=== PATIENT | female | born 1990 | race Caucasian/White ===

== ENCOUNTER 2018-04-01 15:43 | Emergency (ER) | payer OTHER ==
[~2018-04-01] VITALS: Ht 160 cm; Wt 47.6 kg
[~2018-04-01 15:43] MED LIST: CHLORDIAZEPOXID25 M3 PO; CIPRO500 M1 PO
[2018-04-01 17:30] LABS: ABSOLUTE BASOPHIL COUNT 0 /CUMM (0.0-0.2); ABSOLUTE EOSINOPHIL COUNT 0 /CUMM (0.0-0.7); ABSOLUTE GRANULOCYTE CT 4.3 /CUMM (1.4-6.5); ABSOLUTE LYMPH COUNT 1.1 /CUMM (1.2-3.4); ABSOLUTE MONOCYTE COUNT 0.3 /CUMM (0.10-0.60); BASOPHIL % 0.2 % (0.0-2.0); EOSINOPHIL % 0.8 % (0-5); GRANULOCYTE % 74.6 % (42.2-75.2); HEMATOCRIT 32.8 % (37-47); MEAN CORPUSCULAR HGB 34.5 PG (27.0-31.0); MEAN CORPUSCULAR HGB CONC 34.3 G/DL (33.0-37.0); MEAN CORPUSCULAR VOLUME 100.8 FL (81.0-99.0); MEAN PLATELET VOLUME 7.4 FL (7.4-10.4); PLATELET COUNT 224 /CUMM (130-400); RED BLOOD CELL CT 3.25 /CUMM (4.20-5.40); WHITE BLOOD CELL COUNT 5.7 /CUMM (4.8-10.8)
--- NOTE | 2018-04-01 17:30 | ED PSYCHIATRIC COMPLAINT ---
History of Present Illness General Chief Complaint: ETOH/Drug Related Complaint Stated Complaint: MEDICAL CLEARANCE FOR [facility] Source: patient Exam Limitations: no limitations Vital Signs & Intake/Output Vital Signs & Intake/Output Vital Signs Date Time Temp Pulse Resp B/P B/P Pulse O2 O2 Flow FiO2 Mean Ox Delivery Rate 04/02 1004 98.2 101 18 128/71 07/ 1004 98.2 101 19 128/71 96 Room Air 07/03 0720 98.0 86 18 112/79 07/03 0720 98.0 86 18 112/79 98 Room Air 07/ 0414 97.7 82 16 140/80 99 07/ 0330 97.7 82 16 140/80 / 2020 98.1 84 16 139/84 07/ 2020 98.1 84 16 139/84 98 Room Air 07/ 1720 97.3 82 18 142/90 07 1720 97.3 82 18 142/90 97 Room Air / 1557 97.0 88 18 150/100 97 Room Air ED Intake and Output 04/02 0000 04/01 1200 Intake Total 240 Output Total Balance 240 Intake, Oral 240 Patient 105 lb Weight Weight Reported by Patient Measurement Method Allergies Coded Allergies: No Known Allergies (03/07/18) Reconcile Medications Chlordiazepoxide HCl 25 MG CAPSULE 0 PO SEE ADMIN CRITERIA PRN alcohol withdrawal 1-2 cap QID x 2D, 1-2 cap TID x 2D, 1-2 cap BID x 2D, 1-2 cap QD x2D Ciprofloxacin HCl (Cipro) 500 MG TABLET 1 TAB PO BID UTI Triage Note: PT HERE FOR ETOH CLEARANCE FOR [facility]. PT DENIES DRUG USE SI OR HI Triage Nurses Notes Reviewed? yes Onset: Abrupt Duration: day(s): Timing: recent history : No Patient currently breastfeeds: No HPI: 27-year-old female comes into emergency room for medical clearance for [facility] facility. Patient reports to drinking alcohol intermittently heavily. Especially over the last few months. Denies any drug use. She's been off of her Lexapro and Ritalin. Patient reports that she is ever have any seizure withdrawal history of DTs. She denies any suicidal or homicidal ideation. Her last drink was yesterday. Denies any other associated symptoms. (Lucio STERN,Rahul) Past History Travel History Traveled to [place] past 21 day No Medical History Any Pertinent Medical History? see below for history Neurological: NONE EENT: NONE Cardiovascular: NONE Respiratory: NONE Gastrointestinal: NONE Hepatic: NONE Renal: NONE Musculoskeletal: NONE Psychiatric: alcohol dependence Endocrine: NONE Surgical History Surgical History: non-contributory Psychosocial History What is your primary language Yoruba Tobacco Use: Never used ETOH Use: alcoholic Illicit Drug Use: denies illicit drug use Family History Hx Contributory? No (Rahul Francis) Review of Systems Review of Systems Constitutional: Reports: no symptoms. EENTM: Reports: no symptoms. Respiratory: Reports: no symptoms. Cardiovascular: Reports: no symptoms. GI: Reports: no symptoms. Genitourinary: Reports: no symptoms. Musculoskeletal: Reports: no symptoms. Skin: Reports: no symptoms. Neurological/Psychological: Reports: see HPI. Hematologic/Endocrine: Reports: no symptoms. Immunologic/Allergic: Reports: no symptoms. All Other Systems: Reviewed and Negative (Rahul Francis) Physical Exam Physical Exam General Appearance: well developed/nourished, mild distress Head: atraumatic Eyes: Bilateral: normal appearance. Ears, Nose, Throat: normal ENT inspection, hearing grossly normal Neck: normal inspection Respiratory: no respiratory distress Extremities: normal range of motion Neurological/Psychiatric: awake, alert, calm Appearance/Memory/Insight: appropriate appearance, appropriate insight Behavoir/Eye Contact/Speech: cooperative Thoughts/Hallucinations: no apparent hallucination Skin: intact, normal color, warm/dry SAD PERSONS Done? patient not suicidal (Rahul Francis) Progress Differential Diagnosis: dementia, drug intoxication, drug overdose, drug withdrawal, electrolyte abnormality Plan of Care: Orders Procedure Date/time Status Regular Diet 04/02 B Active CIWA 04/01 1638 Active URINE DRUGS OF ABUSE 04/01 1638 Complete URINE 04/01 1638 Complete ETHANOL 04/01 163 Complete COMPREHENSIVE METABOLIC PANEL 04/01 1638 Complete CBC WITHOUT DIFFERENTIAL 04/01 1638 Complete Laboratory Tests 04/01/18 1711: Anion Gap 16, Estimated GFR > 60, BUN/Creatinine Ratio 20.0, Glucose 85, Calcium 9.1, Total Bilirubin 0.4, AST 204 H, ALT 88 H, Alkaline Phosphatase 117, Total Protein 7.4, Albumin 4.6, Globulin 2.8, Albumin/Globulin Ratio 1.6, CBC w Diff NO MAN DIFF REQ, RBC 3.25 L, MCV 100.8 H, MCH 34.5 H, MCHC 34.3, RDW 14.0, MPV 7.4, Gran % 74.6, Lymphocytes % 19.8 L, Monocytes % 4.6, Eosinophils % 0.8, Basophils % 0.2, Absolute Granulocytes 4.3, Absolute Lymphocytes 1.1 L, Absolute Monocytes 0.3, Absolute Eosinophils 0, Absolute Basophils 0, Serum Alcohol 86.0 04/01/18 1649: Urine Opiates Screen < 100, Methadone Screen < 40, Barbiturate Screen < 60, Ur Phencyclidine Scrn < 6.00, Amphetamines Screen < 100, U Benzodiazepines Scrn > 800 H, Urine Cocaine Screen < 50, Urine Cannabis Screen < 5.00, Urine Test NEGATIVE Hand-Off Endorsed To: Param Desouza MD (Rahul Francis) Hand-Off Endorsed To: Samir Garcia MD Endorsed Time: 0700 Pending: other (CIWA ) (Param Desouza MD) Comments: Stable for [facility] detox (Samir Garcia MD) Departure Departure Condition: Stable Referrals: Patient Has No Primary Care Dr (PCP/Family) (Rahul Francis) PA/LAUNDRY PRESS OPERATOR Co-Sign Statement Statement: ED Attending supervision documentation- [X] I saw and evaluated the patient. I have also reviewed all the pertinent lab results and diagnostic results. I agree with the findings and the plan of care as documented in the PA's/LAUNDRY PRESS OPERATOR's documentation. [X] I have reviewed the ED Record and agree with the PA's/LAUNDRY PRESS OPERATOR's documentation. [] Additions or exceptions (if any) to the PAs/LAUNDRY PRESS OPERATOR's note and plan are summarized below: [] (Param Desouza MD) Departure Time of Disposition: 1140 Disposition: ACUTE REHAB FACILITY Clinical Impression Primary Impression: Alcohol dependence Departure Forms: General Discharge Information PA/LAUNDRY PRESS OPERATOR Co-Sign Statement Statement: ED Attending supervision documentation- x I saw and evaluated the patient. I have also reviewed all the pertinent lab results and diagnostic results. I agree with the findings and the plan of care as documented in the PA's/LAUNDRY PRESS OPERATOR's documentation. [] I have reviewed the ED Record and agree with the PA's/LAUNDRY PRESS OPERATOR's documentation. [] Additions or exceptions (if any) to the PAs/LAUNDRY PRESS OPERATOR's note and plan are summarized below: [] (Jose DE LA ROSA,Samir)
[2018-04-02 12:01] VITALS: BP 122/78
== END 2018-04-02 12:17 ==
LOC: ERH 15:43
PROVIDERS: Physician Assistant Medical
DX: F10.20 Alcohol dependence, uncomplicated (principal)
CPT/HCPCS: 80307; 81025; G0480